=== PATIENT | male | born 1960 | race Two or more races ===

== ENCOUNTER 2024-12-22 18:07 | Inpatient (IN) | payer OTHER ==
[~2024-12-22] VITALS: Ht 167.6 cm; Wt 85.7 kg
[2024-12-22 21:00] LABS: BASOPHILS # (AUTO) 0.1 K/uL (0.0-0.2); BASOPHILS % (AUTO) 1.3 % (0.0-2.0); EOSINOPHILS # (AUTO) 0.3 K/uL (0.0-0.7); EOSINOPHILS % (AUTO) 4.6 % (0.0-6.0); HEMATOCRIT 28 % (39-51); HEMOGLOBIN 9.2 g/dL (13.5-17.5); LYMPHOCYTES # (AUTO) 1.4 K/uL (0.8-4.8); LYMPHOCYTES % (AUTO) 22.8 % (20.0-44.0); MEAN CORPUSCULAR HEMOGLOBIN 28 PG (26.0-33.0); MEAN CORPUSCULAR HGB CONC 34 g/dl (31.0-36.0); MEAN CORPUSCULAR VOLUME 83 fL (80-96); MONOCYTES # (AUTO) 0.6 K/uL (0.1-1.30); MONOCYTES % (AUTO) 9.7 % (2.0-12.0); NEUTROPHILS # (AUTO) 3.9 K/uL (1.8-8.9); NEUTROPHILS % (AUTO) 61.6 % (43.0-81.0); PLATELET COUNT (AUTO) 180 K/uL (150-450); RED BLOOD CELL COUNT(AUTO) 3.33 MIL/uL (4.5-6.0); RED CELL DISTRIBUTION WIDTH 16.7 % (11.5-15.0); WHITE BLOOD COUNT (AUTO) 6.3 K/uL (4.3-11.0)
[2024-12-22 21:08] LABS: CALCIUM, SERUM 9.1 mg/dL (8.5-10.1); CREATININE 1.1 mg/dL (0.6-1.3); POTASSIUM 3.4 mmol/L (3.5-5.1)
[2024-12-22 21:14] LABS: ALBUMIN 2.8 g/dL (3.4-5.0); BILIRUBIN,DIRECT 0.1 mg/dL (0.0-0.2); BILIRUBIN,TOTAL 0.4 mg/dL (0.2-1.0); TOTAL PROTEIN, SERUM 7.8 g/dL (6.4-8.2)
[2024-12-22 21:15] LABS: INR 1.19 (0.91-1.10); PARTIAL THROMBOPLASTIN TIME 26.8 SEC (24.3-34.3); PROTHROMBIN TIME 12.5 SECS (9.2-11.1)
[2024-12-22] MEDS ORDERED: ONDANSETRON HCL/PF 4 MG/2 ML VIAL IVP PRN (23:00)
[2024-12-22] MEDS ORDERED: hydrALAZINE HCL IV 20 MG VIAL IV PRN (23:00)
[2024-12-22] MEDS ORDERED: ALBUTEROL FS 2.5 MG/0.5 ML VIAL.NEB NEB PRN (23:00)
[2024-12-22] MEDS ORDERED: MORPHINE SULFATE INJ 2 MG/ML DISP.SYRIN IV PRN (23:00)
[2024-12-22 23:26] VITALS: O2SAT 97
[2024-12-23] VITALS (12 sets, daily range): BP systolic 121–145; BP diastolic 74–83; TEMP 98.1–99.5; O2SAT 96–100
[2024-12-23 07:00] LABS: ALBUMIN 2.8 g/dL (3.4-5.0); BILIRUBIN,TOTAL 0.5 mg/dL (0.2-1.0); CALCIUM, SERUM 9.2 mg/dL (8.5-10.1); CREATININE 0.9 mg/dL (0.6-1.3); MAGNESIUM 2.3 mg/dL (1.8-2.4); PHOSPHORUS 3.6 mg/dL (2.5-4.9); POTASSIUM 3.6 mmol/L (3.5-5.1); TOTAL PROTEIN, SERUM 7.8 g/dL (6.4-8.2)
[2024-12-23 07:10] LABS: BASOPHILS # (AUTO) 0.1 K/uL (0.0-0.2); BASOPHILS % (AUTO) 0.9 % (0.0-2.0); EOSINOPHILS # (AUTO) 0.3 K/uL (0.0-0.7); EOSINOPHILS % (AUTO) 5.2 % (0.0-6.0); HEMATOCRIT 30 % (39-51); HEMOGLOBIN 10.1 g/dL (13.5-17.5); LYMPHOCYTES # (AUTO) 1.4 K/uL (0.8-4.8); LYMPHOCYTES % (AUTO) 24.5 % (20.0-44.0); MEAN CORPUSCULAR HEMOGLOBIN 28 PG (26.0-33.0); MEAN CORPUSCULAR HGB CONC 34 g/dl (31.0-36.0); MEAN CORPUSCULAR VOLUME 83 fL (80-96); MONOCYTES # (AUTO) 0.6 K/uL (0.1-1.30); MONOCYTES % (AUTO) 9.8 % (2.0-12.0); NEUTROPHILS # (AUTO) 3.5 K/uL (1.8-8.9); NEUTROPHILS % (AUTO) 59.6 % (43.0-81.0); PLATELET COUNT (AUTO) 180 K/uL (150-450); RED BLOOD CELL COUNT(AUTO) 3.57 MIL/uL (4.5-6.0); RED CELL DISTRIBUTION WIDTH 16.6 % (11.5-15.0); WHITE BLOOD COUNT (AUTO) 5.8 K/uL (4.3-11.0)
[2024-12-23] MEDS: HEPARIN SODIUM, PORCINE 5000 UNITS/1 ML VIAL SQ SCH (08:54)
[2024-12-23] MEDS ORDERED: LORA-258 GT (09:43)
[2024-12-23] MEDS ORDERED: ASPI-1169 GT (09:43)
[2024-12-23] MEDS ORDERED: LORA-259 GT (09:43)
[2024-12-23] MEDS ORDERED: CALC-1276 GT (09:43)
[2024-12-23] MEDS ORDERED: CHLO118L3 MM (09:43)
[2024-12-23] MEDS ORDERED: ATOR20TA GT (09:43)
[2024-12-23] MEDS ORDERED: MAGN400O6 GT (09:43)
[2024-12-23] MEDS ORDERED: LEVE100S GT (09:43)
[2024-12-23] MEDS ORDERED: ALBU2.5V38 IH (09:43)
[2024-12-23] MEDS ORDERED: METO100T14 GT (09:43)
[2024-12-23] MEDS ORDERED: ACET-3511 GT (09:43)
[2024-12-23] MEDS ORDERED: DOCU100T2 GT (09:43)
[2024-12-23] MEDS ORDERED: DIVA125C5 GT (09:43)
[2024-12-23] MEDS ORDERED: FURO-144 GT (09:43)
[2024-12-23] MEDS ORDERED: NA P133E RC (09:43)
[2024-12-23] MEDS ORDERED: SENN-301 GT (09:43)
[2024-12-23] MEDS ORDERED: FAMO20TA8 GT (09:43)
[2024-12-23] MEDS ORDERED: QUET50TA GT (09:43)
[2024-12-23] MEDS ORDERED: LACT250L14 GT (09:43)
[2024-12-23] MEDS ORDERED: AMIO200T5 GT (09:43)
[2024-12-23 14:10] LABS: ABG BASE EXCESS 9.2 mmol/L (-2.0-3.0); ABG OXYGEN SATURATION 96.1 % (94.0-98.0); ABG PCO2 39.5 mmHg (35.0-48.0); ABG PH 7.534 (7.350-7.450); ABG PO2 84.9 mmHg (83.0-108.0); COHb 0.3 % (0.5-1.5); O2Hb 95.8 % (94.0-97.0); SITE, ABG RIGHT RADIAL
[2024-12-24] VITALS (13 sets, daily range): BP systolic 110–144; BP diastolic 72–86; TEMP 98.2–99.5; O2SAT 95–100
[2024-12-24 08:46] LABS: BASOPHILS # (AUTO) 0.1 K/uL (0.0-0.2); BASOPHILS % (AUTO) 0.7 % (0.0-2.0); EOSINOPHILS # (AUTO) 0.1 K/uL (0.0-0.7); EOSINOPHILS % (AUTO) 0.9 % (0.0-6.0); HEMATOCRIT 30 % (39-51); LYMPHOCYTES # (AUTO) 1.9 K/uL (0.8-4.8); LYMPHOCYTES % (AUTO) 25.7 % (20.0-44.0); MEAN CORPUSCULAR HEMOGLOBIN 28 PG (26.0-33.0); MEAN CORPUSCULAR HGB CONC 34 g/dl (31.0-36.0); MEAN CORPUSCULAR VOLUME 83 fL (80-96); MONOCYTES # (AUTO) 0.7 K/uL (0.1-1.30); MONOCYTES % (AUTO) 9.9 % (2.0-12.0); NEUTROPHILS # (AUTO) 4.7 K/uL (1.8-8.9); NEUTROPHILS % (AUTO) 62.8 % (43.0-81.0); PLATELET COUNT (AUTO) 199 K/uL (150-450); RED BLOOD CELL COUNT(AUTO) 3.55 MIL/uL (4.5-6.0); RED CELL DISTRIBUTION WIDTH 16.7 % (11.5-15.0); WHITE BLOOD COUNT (AUTO) 7.6 K/uL (4.3-11.0)
[2024-12-24 08:56] LABS: CALCIUM, SERUM 9.1 mg/dL (8.5-10.1); CREATININE 0.9 mg/dL (0.6-1.3); POTASSIUM 3.6 mmol/L (3.5-5.1)
[2024-12-24] MEDS: JEVITY 1.5 CAL LIQUID 1,000 ML BOTTLE GT SCH (09:37)
[2024-12-24] MEDS: LORAZEPAM INJ 2 MG/ML VIAL IV PRN ×2 (10:00→15:48)
[2024-12-24] MEDS: LEVETIRACETAM SOL (5 ML) 100 MG/ML UDC GT SCH (15:26)
[2024-12-24] MEDS: DIVALPROEX SODIUM 125 MG CAP.SPRINK GT SCH (15:26)
[2024-12-24] MEDS: LORAZEPAM 1 MG TABLET GT PRN (15:26)
[2024-12-24] MEDS ORDERED: NA PHOS,M-B/NA PHOS,DI-BA 1 EA ENEMA RC PRN (15:30)
[2024-12-24] MEDS ORDERED: MAGNESIUM HYDROXIDE 30 ML UDC GT PRN (15:30)
[2024-12-24] MEDS ORDERED: ONDANSETRON HCL/PF 4 MG/2 ML VIAL IVP PRN (16:00)
[2024-12-24] MEDS: ACETAMINOPHEN 325 MG TABLET PO PRN (16:16)
[2024-12-24] MEDS: METOPROLOL TARTRATE 50 MG TABLET GT SCH (16:41)
[2024-12-24] MEDS: FAMOTIDINE (20 MG) 20 MG TABLET GT SCH (16:41)
[2024-12-24] MEDS: AMIODARONE HCL 200 MG TABLET GT SCH (16:41)
[2024-12-24] MEDS: SENNOSIDES/DOCUSATE SODIUM 1 TAB TABLET GT SCH (17:06)
[2024-12-24] MEDS: ALBUTEROL FS 2.5 MG/3 ML VIAL.NEB NEB SCH (19:50)
[2024-12-24] MEDS: CHLORHEXIDINE GLUCONATE 4% 118 ML BOTTLE TP SCH (21:00)
[2024-12-24] MEDS: LORAZEPAM 0.5 MG TABLET GT SCH (21:17)
[2024-12-24] MEDS: ASPIRIN 81 MG TAB.CHEW GT SCH (21:17)
[2024-12-24] MEDS: QUETIAPINE FUMARATE 25 MG TABLET GT SCH (21:17)
[2024-12-24] MEDS: ATORVASTATIN 10 MG TABLET GT SCH (21:18)
[2024-12-25] VITALS (18 sets, daily range): BP systolic 108–116; BP diastolic 65–74; TEMP 97.3–98.6; O2SAT 95–99
[2024-12-25] MEDS ORDERED: JEVITY 1.5 CAL LIQUID 1,000 ML BOTTLE GT SCH ×2 (08:00→09:00)
[2024-12-25] MEDS ORDERED: JEVITY 1.5 CAL LIQUID 1,000 ML BOTTLE GT PRN (08:00)
[2024-12-25] MEDS ORDERED: AMIODARONE HCL 200 MG TABLET GT SCH (09:00)
[2024-12-25] MEDS: DOCUSATE SODIUM 100 MG CAPSULE PO SCH (09:12)
[2024-12-25] MEDS: FUROSEMIDE 40 MG TABLET GT SCH (09:13)
[2024-12-25] MEDS: CALCIUM CARB 600MG /VIT D 1 EACH TABLET GT SCH (09:13)
[2024-12-25 12:31] LABS: THYROID STIMULATING HORMONE 0.6 uIU/mL (0.358-3.74)
[2024-12-25] MEDS ORDERED: LORAZEPAM INJ 2 MG/ML VIAL IV PRN (16:00)
[2024-12-25] MEDS: LEVETIRACETAM SOL (5 ML) 100 MG/ML UDC GT SCH (16:13)
[2024-12-25] MEDS: ACETAMINOPHEN 650 MG/20.3 ML UDC GT PRN (17:47)
[2024-12-26] VITALS (18 sets, daily range): BP systolic 112–145; BP diastolic 65–75; TEMP 97.7–98.8; O2SAT 96–100
[2024-12-27] VITALS (18 sets, daily range): BP systolic 113–140; BP diastolic 66–80; TEMP 98.1–99.1; O2SAT 97–100
[2024-12-27 10:11] LABS: FOLIC ACID > 20.0 ng/mL (>3.0)
[2024-12-28] VITALS (10 sets, daily range): BP systolic 114–145; BP diastolic 69–78; TEMP 98–98.2; O2SAT 96–100
[2024-12-28 06:50] LABS: CALCIUM, SERUM 8.8 mg/dL (8.5-10.1); CREATININE 0.9 mg/dL (0.6-1.3); POTASSIUM 3.1 mmol/L (3.5-5.1)
[2024-12-28 06:53] LABS: BASOPHILS % (AUTO) 0.5 % (0.0-2.0); EOSINOPHILS # (AUTO) 0.4 K/uL (0.0-0.7); EOSINOPHILS % (AUTO) 5.5 % (0.0-6.0); HEMATOCRIT 28 % (39-51); HEMOGLOBIN 9.3 g/dL (13.5-17.5); LYMPHOCYTES # (AUTO) 2.3 K/uL (0.8-4.8); LYMPHOCYTES % (AUTO) 28.6 % (20.0-44.0); MEAN CORPUSCULAR HEMOGLOBIN 28 PG (26.0-33.0); MEAN CORPUSCULAR HGB CONC 33 g/dl (31.0-36.0); MEAN CORPUSCULAR VOLUME 85 fL (80-96); MONOCYTES # (AUTO) 0.7 K/uL (0.1-1.30); MONOCYTES % (AUTO) 8.8 % (2.0-12.0); NEUTROPHILS # (AUTO) 4.5 K/uL (1.8-8.9); NEUTROPHILS % (AUTO) 56.6 % (43.0-81.0); PLATELET COUNT (AUTO) 233 K/uL (150-450); RED BLOOD CELL COUNT(AUTO) 3.34 MIL/uL (4.5-6.0); RED CELL DISTRIBUTION WIDTH 17.3 % (11.5-15.0); WHITE BLOOD COUNT (AUTO) 7.9 K/uL (4.3-11.0)
[2024-12-28] MEDS ORDERED: LEVE100S GT (09:48)
[2024-12-28] MEDS ORDERED: AMIO200T7 GT (09:48)
[2024-12-28] MEDS ORDERED: ACET325T53 PO (09:48)
[2024-12-28] MEDS ORDERED: LACT-96 GT (09:48)
[2024-12-28] MEDS: POTASSIUM CHLORIDE 20 MEQ POWDER PACKET GT ONE (10:24)
[2024-12-29 14:13] LABS: METHYLMALONIC ACID 1253 nmol/L (0-378)
== END 2024-12-28 14:04 | DRG 53 ==
LOC: ER 18:47 → TELE1 12-23 00:36 → MEDSG1 12-27 12:45
PROVIDERS: ADMIT Internal Medicine; ATTEND Nurse Practitioner Acute Care
DX: R56.9 Unspecified convulsions (principal); G92.8 Other toxic encephalopathy; J96.10 Chronic respiratory failure, unspecified whether with hypoxia or hypercapnia; D68.59 Other primary thrombophilia; E44.0 Moderate protein-calorie malnutrition; R53.2 Functional quadriplegia; E88.09 Other disorders of plasma-protein metabolism, not elsewhere classified; I48.91 Unspecified atrial fibrillation; Z93.0 Tracheostomy status; Z99.11 Dependence on respirator [ventilator] status; R13.10 Dysphagia, unspecified; D64.9 Anemia, unspecified; I25.10 Atherosclerotic heart disease of native coronary artery without angina pectoris; Z86.73 Personal history of transient ischemic attack (TIA), and cerebral infarction without residual deficits; E87.6 Hypokalemia; I10 Essential (primary) hypertension; Z93.1 Gastrostomy status; Z68.30 Body mass index [BMI] 30.0-30.9, adult; G93.89 Other specified disorders of brain
CPT/HCPCS: 31720; 36415; 36600; 70450-TC; 71045-TC; 74230-TC; 80048-TC; 80053-TC; 80061-TC; 80076-TC; 82607-TC; 82803-TC; 82962-TC; 83735-TC; 83921; 84100-TC; 84425; 84443-TC; 85025-TC; 85730-TC; 92526; 92611-TC; 94640-TC; 94664-TC; 94760-TC; 94762-TC; 94799-TC; G0378; J1644; J1953; J2060

== ENCOUNTER 2025-07-02 14:48 | Inpatient (IN) | payer MEDICARE, OTHER ==
[~2025-07-02] VITALS: Ht 177.8 cm; Wt 78.5 kg
[~2025-07-02 14:48] MED LIST: ACET-3511 GT; ACET325T53 PO; ALBU2.5V38 IH; AMIO200T5 PO; AMIO200T7 GT; ASPI-1169 PO; ATOR20TA PO; BETA15CR5 TP; CALC-1276 GT; CHLO118L3 MM; DIVA125C5 PO; DOCU100T2 PO; FAMO20TA8 PO; FURO-144 PO; IVER3TAB2 PO; LACT-96 GT; LACT250L14 GT; LEVE100S GT; LEVE100S PO; LORA-258 PO; LORA-259 GT; MAGN400O6 PO; METO100T14 PO; NA P133E RC; QUET50TA GT; SENN-301 PO
[2025-07-02] MEDS ORDERED: PROCHLORPERAZINE EDISYLATE 10 MG/2 ML VIAL ONE (14:56)
[2025-07-02] MEDS ORDERED: dexaMETHasone SOD PHOSPHATE 1 ML ONE (14:56)
[2025-07-02] MEDS ORDERED: KETOROLAC TROMETHAMINE 15 MG/ML VIAL ONE (14:56)
[2025-07-02] MEDS: KETOROLAC TROMETHAMINE 15 MG/ML VIAL IV ONE (15:05)
[2025-07-02] MEDS: dexaMETHasone SOD PHOSPHATE 10 MG/ML VIAL IV ONE (15:05)
[2025-07-02] MEDS: IV NS 0.9% 1,000 ML BAG IV ONE (15:05)
[2025-07-02] MEDS: PROCHLORPERAZINE EDISYLATE 10 MG/2 ML VIAL IVP ONE (15:25)
[2025-07-02 18:03] LABS: PLATELET COUNT (AUTO) 195 K/uL (150-450); RED BLOOD CELL COUNT(AUTO) 3.51 MIL/uL (4.5-6.0); RED CELL DISTRIBUTION WIDTH 15.3 % (11.5-15.0); WHITE BLOOD COUNT (AUTO) 5.3 K/uL (4.3-11.0)
[2025-07-02 18:22] LABS: CALCIUM, SERUM 8.0 mg/dL (8.5-10.1); CREATININE 1.2 mg/dL (0.6-1.3); SODIUM SERUM 146 mmol/L (136-145); UREA NITROGEN, BLOOD 15 mg/dL (7-18)
[2025-07-02 18:22] LABS: APPEARANCE,URINE CLEAR (CLEAR); BLOOD, URINE 2+ Ery/uL (NEGATIVE); LEUKOCYTE ESTERASE ,URINE TRACE (NEGATIVE); NITRITE, URINE NEGATIVE (NEGATIVE); UGLUCOSE NEGATIVE (NEGATIVE)
[2025-07-02 18:23] LABS: SERUM AMMONIA 10 umol/L (11-32)
[2025-07-02 18:29] LABS: ASPARTATE AMINOTRANSFERASE 14 U/L (15-37); TOTAL PROTEIN, SERUM 6.5 g/dL (6.4-8.2)
[2025-07-02 18:29] LABS: ADD URINE CULTURE NO; SQUAMOUS EPITHELIAL CELL,UR 0-2 /HPF (None Seen)
[2025-07-02 18:50] LABS: AMPHETAMINE, URINE NEGATIVE (NEGATIVE); BARBITURATE, URINE NEGATIVE (NEGATIVE); BENZODIAZEPINE, URINE NEGATIVE (NEGATIVE); CANNABINOID, URINE NEGATIVE (NEGATIVE); COCCAINE, URINE NEGATIVE (NEGATIVE); OPIATE, URINE NEGATIVE (NEGATIVE)
[2025-07-02] MEDS ORDERED: MAG HYDROX/AL HYDROX/SIMETH 30 ML UDC PO PRN (19:30)
[2025-07-02] MEDS ORDERED: ACETAMINOPHEN 325 MG TABLET PO PRN (19:30)
[2025-07-02] MEDS ORDERED: MAGNESIUM HYDROXIDE 30 ML UDC PO PRN (19:30)
[2025-07-02] MEDS ORDERED: ONDANSETRON HCL/PF 4 MG/2 ML VIAL IVP PRN (19:30)
[2025-07-02] MEDS ORDERED: Z GUARD REMEDY 4 OZ OINT TP PRN (19:30)
[2025-07-02] MEDS ORDERED: CT SWABBABLE VALVE TRANS SET 1 EA INFUS.SET MC ONE (19:46)
[2025-07-02] MEDS ORDERED: IOHEXOL-350 100 ML VIAL IV ONE (19:46)
[2025-07-02] MEDS ORDERED: IV NS 0.9% 250 ML IV ONE (19:46)
[2025-07-02 20:00] VITALS: BP 155/87; TEMP 97.5; O2SAT 98
[2025-07-02] MEDS ORDERED: BISACODYL SUPP (10 MG) 10 MG/SUPP.RECT SUPP.RECT RC PRN (21:00)
[2025-07-02] MEDS ORDERED: LORAZEPAM 0.5 MG TABLET PO PRN (21:00)
[2025-07-02] MEDS ORDERED: TRAMADOL HCL 50 MG TABLET PO PRN (21:00)
[2025-07-02] MEDS: LEVETIRACETAM SOL (5 ML) 100 MG/ML UDC PO SCH (21:10)
[2025-07-02] MEDS: ENOXAPARIN SODIUM 40 MG/0.4 ML DISP.SYRIN SQ SCH (21:13)
[2025-07-02] MEDS: SENNOSIDES 8.6 MG TABLET PO SCH (21:18)
[2025-07-02] MEDS: METOPROLOL TARTRATE 50 MG TABLET PO SCH (21:18)
[2025-07-02] MEDS: ATORVASTATIN 10 MG TABLET PO SCH (21:19)
[2025-07-03] VITALS (10 sets, daily range): BP systolic 102–150; BP diastolic 46–86; TEMP 97.3–98.2; O2SAT 95–98
[2025-07-03 07:06] LABS: PLATELET COUNT (AUTO) 226 K/uL (150-450); RED BLOOD CELL COUNT(AUTO) 3.63 MIL/uL (4.5-6.0); RED CELL DISTRIBUTION WIDTH 15.1 % (11.5-15.0); WHITE BLOOD COUNT (AUTO) 4.9 K/uL (4.3-11.0)
[2025-07-03 07:17] LABS: CALCIUM, SERUM 8.8 mg/dL (8.5-10.1); PHOSPHORUS 3.6 mg/dL (2.5-4.9); SODIUM SERUM 146.0 mmol/L (136-145); UREA NITROGEN, BLOOD 18.0 mg/dL (7-18)
[2025-07-03 07:26] LABS: CREATININE 1.1 mg/dL (0.6-1.3)
[2025-07-03 07:28] LABS: LDL 96.0 mg/dL (0-99)
[2025-07-03] MEDS ORDERED: AMIN30LI66 PO (07:59)
[2025-07-03] MEDS ORDERED: TRAM50TA2 PO (07:59)
[2025-07-03] MEDS ORDERED: ACET325T53 PO (07:59)
[2025-07-03] MEDS: PANTOPRAZOLE 40 MG TABLET.DR PO SCH (08:15)
[2025-07-03] MEDS: DIVALPROEX SODIUM 500 MG TABLET.DR PO SCH (08:15)
[2025-07-03] MEDS: DOCUSATE SODIUM 100 MG CAPSULE PO SCH (08:15)
[2025-07-03] MEDS: ASPIRIN 81 MG TAB.CHEW PO SCH ×2 (08:16→22:34)
[2025-07-03] MEDS: FUROSEMIDE 40 MG TABLET PO SCH (08:18)
[2025-07-03] MEDS ORDERED: ALBUTEROL FS 2.5 MG/3 ML VIAL.NEB IH PRN (12:30)
[2025-07-03] MEDS ORDERED: CEPHALEXIN MONOHYDRATE 250 MG/5 ML BOTTLE GT SCH (12:30)
[2025-07-03] MEDS ORDERED: TRAMADOL HCL 50 MG TABLET PO PRN (12:30)
[2025-07-03] MEDS ORDERED: NA PHOS,M-B/NA PHOS,DI-BA 1 EA ENEMA RC PRN (12:30)
[2025-07-03] MEDS ORDERED: MAGNESIUM HYDROXIDE 30 ML UDC PO PRN (12:30)
[2025-07-03] MEDS: CEPHALEXIN MONOHYDRATE 500 MG CAPSULE PO SCH (12:44)
[2025-07-03] MEDS: DIVALPROEX SODIUM 125 MG CAP.SPRINK PO SCH (12:44)
[2025-07-03] MEDS: LEVETIRACETAM SOL (5 ML) 100 MG/ML UDC PO SCH (16:37)
[2025-07-03] MEDS: FAMOTIDINE (20 MG) 20 MG TABLET PO SCH (16:38)
[2025-07-03] MEDS: SENNOSIDES/DOCUSATE SODIUM 1 TAB TABLET PO SCH (18:08)
[2025-07-03] MEDS: METOPROLOL TARTRATE 50 MG TABLET GT SCH (21:45)
[2025-07-03] MEDS: ATORVASTATIN 10 MG TABLET PO SCH (22:34)
[2025-07-04] VITALS: BP_SYST 125; BP_SYST 126; BP_DIAS 71; BP_DIAS 72; TEMP 98; O2SAT 98
[2025-07-04 04:00] VITALS: BP_SYST 120; BP_SYST 126; BP_DIAS 70; BP_DIAS 76; TEMP 98; O2SAT 96
[2025-07-04 06:45] LABS: PLATELET COUNT (AUTO) 210 K/uL (150-450); RED BLOOD CELL COUNT(AUTO) 3.25 MIL/uL (4.5-6.0); RED CELL DISTRIBUTION WIDTH 15.6 % (11.5-15.0); WHITE BLOOD COUNT (AUTO) 5.6 K/uL (4.3-11.0)
[2025-07-04 07:24] LABS: CALCIUM, SERUM 8.7 mg/dL (8.5-10.1); CREATININE 1.3 mg/dL (0.6-1.3); SODIUM SERUM 148.0 mmol/L (136-145); UREA NITROGEN, BLOOD 25.0 mg/dL (7-18)
[2025-07-04 08:00] VITALS: BP 149/84; TEMP 97.5; O2SAT 98
[2025-07-04] MEDS: FUROSEMIDE 40 MG TABLET PO SCH (08:38)
[2025-07-04] MEDS: AMIODARONE HCL 200 MG TABLET PO SCH (08:51)
[2025-07-04] MEDS ORDERED: CEPH-570 PO (10:45)
[2025-07-04] MEDS: POTASSIUM CHLORIDE 20 MEQ TAB.PRT.SR PO ONE (10:47)
[2025-07-04 13:00] VITALS: BP 145/82; TEMP 97.3; O2SAT 98
[2025-07-04 21:00] VITALS: BP 148/72; TEMP 98.2; O2SAT 95
[2025-07-05 05:00] VITALS: BP_SYST 142; BP_SYST 150; BP_SYST 153; BP_DIAS 79; BP_DIAS 80; BP_DIAS 88; TEMP 98; O2SAT 97
[2025-07-05 08:51] VITALS: BP 156/90
[2025-07-05 09:01] LABS: PLATELET COUNT (AUTO) 247 K/uL (150-450); RED BLOOD CELL COUNT(AUTO) 4.34 MIL/uL (4.5-6.0); RED CELL DISTRIBUTION WIDTH 16.0 % (11.5-15.0); WHITE BLOOD COUNT (AUTO) 6.1 K/uL (4.3-11.0)
[2025-07-05 09:04] LABS: CALCIUM, SERUM 8.7 mg/dL (8.5-10.1); CREATININE 1.1 mg/dL (0.6-1.3); SODIUM SERUM 145.0 mmol/L (136-145); UREA NITROGEN, BLOOD 20.0 mg/dL (7-18)
== END 2025-07-05 12:53 | DRG 690 ==
LOC: ER 15:02 → MEDSG1 18:43 → TELE1 19:56 → MEDSG1 07-04 09:49
PROVIDERS: ADMIT Nurse Practitioner Acute Care; ATTEND Nurse Practitioner Acute Care
DX: N39.0 Urinary tract infection, site not specified (principal); E44.0 Moderate protein-calorie malnutrition; J96.10 Chronic respiratory failure, unspecified whether with hypoxia or hypercapnia; E87.0 Hyperosmolality and hypernatremia; E86.0 Dehydration; Z91.81 History of falling; K21.9 Gastro-esophageal reflux disease without esophagitis; D64.9 Anemia, unspecified; Z86.73 Personal history of transient ischemic attack (TIA), and cerebral infarction without residual deficits; E87.6 Hypokalemia; E78.5 Hyperlipidemia, unspecified; E83.51 Hypocalcemia; E88.09 Other disorders of plasma-protein metabolism, not elsewhere classified; F41.9 Anxiety disorder, unspecified; G93.89 Other specified disorders of brain; I10 Essential (primary) hypertension; I48.91 Unspecified atrial fibrillation; Z79.899 Other long term (current) drug therapy; R42 Dizziness and giddiness; I25.10 Atherosclerotic heart disease of native coronary artery without angina pectoris; F29 Unspecified psychosis not due to a substance or known physiological condition; Z95.820 Peripheral vascular angioplasty status with implants and grafts; M19.041 Primary osteoarthritis, right hand
CPT/HCPCS: 36415; 70450-TC; 70496-TC; 70498-TC; 71045-TC; 80048-TC; 80061-TC; 80076-TC; 81001; 82140-TC; 82962-TC; 83735-TC; 84100-TC; 84443-TC; 84484-TC; 85025-TC; 87081-TC; 87086-TC; 93307-TC; 97112-TC; 97116-TC; 97530-TC; G0378; J0780; J1100; J1650; J1885; J1953; J7030; J7050; Q9967